=== PATIENT | female | born 1985 | race Hispanic/Latino ===

== ENCOUNTER 2017-12-08 12:13 | Emergency (ER) | payer SELFPAY ==
[2017-12-08] MEDS ORDERED: ACETAMINOPHEN EXTRA STRENGTH 500 MG TABLET ONE (12:51)
[2017-12-08 12:57] LABS: BASOPHILS % (AUTO) 0.1 % (0.0-5.0); HEMATOCRIT 39.3 % (36-48); LYMPHOCYTES % (AUTO) 5.9 % (21.0-51.0); MEAN CORPUSCULAR HGB CONC 33.4 g/dL (32.0-36.0); MEAN CORPUSCULAR VOLUME 77.9 fL (79-99); MONOCYTES % (AUTO) 5.3 % (3.0-13.0); NEUTROPHILS % (AUTO) 88.7 % (40.0-77.0); PLATELET COUNT (AUTO) 322 K/uL (130-400); RED BLOOD CELL COUNT(AUTO) 5.05 MIL/uL (4.00-5.50); RED CELL DISTRIBUTION WIDTH 14.9 % (11.0-15.5); WHITE BLOOD COUNT (AUTO) 14.2 K/uL (4.8-10.8)
[2017-12-08 13:01] LABS: APPEARANCE,URINE Clear (CLEAR); BILIRUBIN,URINE Negative (NEGATIVE); COLOR,URINE Yellow (YELLOW); GLUCOSE, URINE (UA) Negative (NEGATIVE); KETONES,URINE Negative (NEGATIVE); LEUKOCYTE ESTERASE ,URINE Moderate (NEGATIVE); NITRATE,URINE Positive (NEGATIVE); OCCULT BLOOD,URINE Small (NEGATIVE); PH,URINE 5.5 (5.0-8.0); PROTEIN,URINE POS 1+ (NEGATIVE)
[2017-12-08 13:02] LABS: CARBON DIOXIDE 27 mmol/L (21-32); CHLORIDE 98 mmol/L (101-111); CREATININE 0.9 mg/dL (0.5-1.5); GLOMERULAR FILTR. RATE CALC 78 mL/min (>60); GLUCOSE,RANDOM 111 mg/dL (70-105); POTASSIUM 3.4 mmol/L (3.5-5.1); SODIUM SERUM 134 mmol/L (136-145); UREA NITROGEN, BLOOD 12 mg/dL (7-18)
[2017-12-08 13:05] LABS: INR 0.95 (0.85-1.15); PARTIAL THROMBOPLASTIN TIME 28.9 SEC (26.3-35.5)
[2017-12-08 13:20] LABS: BACTERIA,URINE Rare /HPF (None Seen); RBC,URINE 0-1 /HPF (0-1); SQUAMOUS EPITHELIAL CELL,UR Few /HPF (0-2)
[2017-12-08 13:30] LABS: ALANINE AMINOTRANSFERASE 63 U/L (12-78); ALBUMIN 3.8 g/dL (3.5-5.0); ASPARTATE AMINOTRANSFERASE 17 U/L (10-37); BILIRUBIN,TOTAL 0.8 mg/dL (0.2-1.0); CREATINE KINASE MB 1.8 ng/mL (0.5-3.6); CREATINE KINASE, TOTAL 110 U/L (21-232); MYOGLOBIN 36 ng/mL (10-92); TOTAL PROTEIN, SERUM 8.2 g/dL (6.0-8.3); TROPONIN I < 0.04 ng/mL (0.00-0.06)
[2017-12-08] MEDS ORDERED: POTASSIUM BICARB/CIT AC 25 MEQ TABLET.EFF ONE (13:57)
[2017-12-08] MEDS ORDERED: CEFTRIAXONE SODIUM 1 GM ONE (13:58)
[2017-12-08] MEDS ORDERED: IBUPROFEN 600 MG TABLET ONE (14:01)
[2017-12-08] MEDS ORDERED: ONDANSETRON HCL MDV 20ML 2 MG/ML VIAL ONE (14:18)
[2017-12-08] MEDS ORDERED: MORPHINE SULFATE 4 MG/1ML SYG ONE (14:18)
== END 2017-12-08 14:58 | disposition home or self-care (01) ==
LOC: EDH 12:13
DX: N39.0 Urinary tract infection, site not specified (principal); J11.1 Influenza due to unidentified influenza virus with other respiratory manifestations; Z72.0 Tobacco use
CPT/HCPCS: 36415; 71045; 80053; 81001; 81025; 82550; 82553; 83605; 83690; 83874; 84484; 85025; 85610; 85730; 87040 ×2; 87088; 87186; 87804 ×2; 93005; 96374; 96375; 99285; J0696; J2270

== ENCOUNTER 2018-07-11 09:22 | Emergency (ER) | payer SELFPAY ==
[2018-07-11] MEDS ORDERED: ONDANSETRON HCL 4 MG/2 ML VIAL ONE (10:23)
[2018-07-11] MEDS ORDERED: LIDOCAINE HCL 2% JELLY 5 ML ONE (10:23)
[2018-07-11] MEDS ORDERED: SODIUM CHLORIDE 0.9% 1000ML 1,000 ML IV ONE (10:24)
[2018-07-11] MEDS ORDERED: TETANUS/DIPHTHERIA TOXOID [ADULT] 0.5 ML VIAL IM ONE (10:25)
[2018-07-11 10:26] LABS: BASOPHILS % (AUTO) 0.2 % (0.0-5.0); HEMATOCRIT 40.5 % (36-48); MEAN CORPUSCULAR HGB CONC 33.4 g/dL (32.0-36.0); MEAN CORPUSCULAR VOLUME 86.8 fL (79-99); MONOCYTES % (AUTO) 5.5 % (3.0-13.0); NEUTROPHILS % (AUTO) 81.3 % (40.0-77.0); PLATELET COUNT (AUTO) 312 K/uL (130-400); RED BLOOD CELL COUNT(AUTO) 4.67 MIL/uL (4.00-5.50); WHITE BLOOD COUNT (AUTO) 12.3 K/uL (4.8-10.8)
[2018-07-11] MEDS ORDERED: MORPHINE SULFATE 4 MG/1ML SYG ONE (10:27)
[2018-07-11 10:34] LABS: CREATININE 0.6 mg/dL (0.5-1.5); POTASSIUM 3.9 mmol/L (3.5-5.1)
[2018-07-11 10:37] LABS: INR 0.94 (0.85-1.15); PARTIAL THROMBOPLASTIN TIME 28.9 SEC (26.3-35.5); PROTHROMBIN TIME 9.9 SEC (9.6-11.6)
[2018-07-11 10:39] LABS: ALBUMIN 3.7 g/dL (3.5-5.0); BILIRUBIN,TOTAL 0.5 mg/dL (0.2-1.0); TOTAL PROTEIN, SERUM 7.6 g/dL (6.0-8.3)
[2018-07-11 11:10] LABS: APPEARANCE,URINE Clear (CLEAR); BILIRUBIN,URINE Negative (NEGATIVE); COLOR,URINE Yellow (YELLOW); GLUCOSE, URINE (UA) Negative (NEGATIVE); KETONES,URINE Negative (NEGATIVE); LEUKOCYTE ESTERASE ,URINE Negative (NEGATIVE); NITRATE,URINE Negative (NEGATIVE); OCCULT BLOOD,URINE Negative (NEGATIVE); PROTEIN,URINE Negative (NEGATIVE)
[2018-07-11 11:16] LABS: AMPHET/METH SCREEN,URINE NEGATIVE (NEGATIVE); BARBITURATE SCREEN, URINE NEGATIVE (NEGATIVE); BENZODIAZEPINES SCREEN,URINE NEGATIVE (NEGATIVE); CANNABINOID SCREEN,URINE NEGATIVE (NEGATIVE); COCAINE SCREEN,URINE POSITIVE (NEGATIVE); OPIATE SCREEN,URINE NEGATIVE (NEGATIVE); PHENCYCLIDINE SCREEN,URINE NEGATIVE (NEGATIVE)
[2018-07-11] MEDS ORDERED: IOHEXOL-350 75 ML VIAL IV ONE (11:21)
[2018-07-11] MEDS ORDERED: KETOROLAC TROMETHAMINE 30MG/ML ONE (12:38)
== END 2018-07-11 13:48 | disposition home or self-care (01) ==
LOC: EDH 09:22
DX: S93.492A Sprain of other ligament of left ankle, initial encounter (principal); S30.0XXA Contusion of lower back and pelvis, initial encounter; Z90.49 Acquired absence of other specified parts of digestive tract; V87.8XXA Person injured in other specified noncollision transport accidents involving motor vehicle (traffic), initial encounter; Y93.89 Activity, other specified; Y92.488 Other paved roadways as the place of occurrence of the external cause; Y99.8 Other external cause status
CPT/HCPCS: 36415; 73600; 74177; 80053; 80305; 81003; 82150; 82550; 83690; 84702; 85025; 85610; 85730; 90471; 90714; 94761; 96374; 96375; 99284; G0480; J1885; J2270; J2405; J7030; Q9967

== ENCOUNTER 2022-12-30 00:05 | Emergency (ER) | payer OTHER ==
[~2022-12-30] VITALS: Ht 157.5 cm; Wt 93.9 kg
[2022-12-30 00:07] VITALS: BP 114/69
[2022-12-30] MEDS ORDERED: CLIN-141 PO (01:45)
[2022-12-30] MEDS ORDERED: IBUP-1493 PO (01:45)
[2022-12-30] MEDS ORDERED: HYDROCODONE/ACETAMINOPHEN 5/325 MG TAB ONE (01:50)
[2022-12-30] MEDS ORDERED: KETOROLAC 60 MG VIAL (30MG/ML) IM ONE ×2 (01:50→02:00)
[2022-12-30] MEDS ORDERED: HYDROCODONE/ACETAMINOPHEN 5/325 MG TAB PO ONE (02:00)
== END 2022-12-30 02:12 | disposition home or self-care (01) ==
LOC: EDH 00:05
DX: K04.7 Periapical abscess without sinus (principal); F17.200 Nicotine dependence, unspecified, uncomplicated; Z90.89 Acquired absence of other organs; Z90.49 Acquired absence of other specified parts of digestive tract
CPT/HCPCS: 99283; 96372; J1885

== ENCOUNTER 2022-12-30 06:48 | Emergency (ER) | payer OTHER ==
[~2022-12-30] VITALS: Ht 157.5 cm; Wt 93.9 kg
[~2022-12-30 06:48] MED LIST: CLIN-141 PO; IBUP-1493 PO
[2022-12-30 07:00] VITALS: BP 124/70
[2022-12-30] MEDS ORDERED: ONDANSETRON ODT 4MG TAB ONE (07:54)
[2022-12-30] MEDS ORDERED: MORPHINE 4 MG SYG ONE (07:55)
[2022-12-30] MEDS ORDERED: HYDROCODONE/ACETAMINOPHEN 5/325 MG TAB PO ONE (08:00)
[2022-12-30] MEDS ORDERED: MORPHINE 4 MG SYG IM ONE (08:00)
[2022-12-30] MEDS ORDERED: ONDANSETRON ODT 4MG TAB SL ONE (08:00)
== END 2022-12-30 08:11 | disposition home or self-care (01) ==
LOC: EDH 06:48
DX: K02.9 Dental caries, unspecified (principal); F17.210 Nicotine dependence, cigarettes, uncomplicated; Z90.89 Acquired absence of other organs; Z90.49 Acquired absence of other specified parts of digestive tract
CPT/HCPCS: 99283; 96372; J2270

== ENCOUNTER 2023-05-23 17:22 | Emergency (ER) | payer OTHER ==
[~2023-05-23] VITALS: Ht 157.5 cm; Wt 89.4 kg
[2023-05-23 17:23] VITALS: BP 126/81; PULSE 100; RESP 20
[2023-05-23 19:31] LABS: BASOPHILS # (AUTO) 0.02 K/uL (0.00-0.20); BASOPHILS % (AUTO) 0.2 % (0.0-5.0); EOSINOPHILS # (AUTO) 0.13 K/uL (0.00-0.70); EOSINOPHILS % (AUTO) 1.6 % (0.0-8.0); IMMATURE GRANULOCYTE ABSOLUTE 0.02 K/uL (0-1); LYMPHOCYTES # (AUTO) 1.4 K/uL (1.0-4.8); LYMPHOCYTES % (AUTO) 16.9 % (21.0-51.0); MEAN CORPUSCULAR HEMOGLOBIN 26.8 pg (27.0-33.0); MEAN CORPUSCULAR HGB CONC 31.6 g/dL (32.0-36.0); MEAN CORPUSCULAR VOLUME 84.8 fL (79-99); MONOCYTES # (AUTO) 0.5 K/uL (0.1-1.0); MONOCYTES % (AUTO) 5.7 % (3.0-13.0); NEUTROPHILS # (AUTO) 6.2 K/uL (1.8-7.7); NEUTROPHILS % (AUTO) 75.4 % (40.0-77.0); PLATELET COUNT (AUTO) 319 K/uL (130-400); RED BLOOD CELL COUNT(AUTO) 5.07 MIL/uL (4.00-5.50); WHITE BLOOD COUNT (AUTO) 8.3 K/uL (4.8-10.8)
[2023-05-23 19:35] LABS: APPEARANCE,URINE CLOUDY (CLEAR); BILIRUBIN,URINE NEGATIVE (NEGATIVE); COLOR,URINE YELLOW (YELLOW); GLUCOSE, URINE (UA) NEGATIVE (NEGATIVE); KETONES,URINE NEGATIVE (NEGATIVE); LEUKOCYTE ESTERASE ,URINE 75 Leu/uL (NEGATIVE); NITRATE,URINE NEGATIVE (NEGATIVE); OCCULT BLOOD,URINE NEGATIVE (NEGATIVE); PROTEIN,URINE 30 mg/dL (NEGATIVE); UROBILINOGEN,URINE 0.2 mg/dL (0.2-1.0)
[2023-05-23 19:46] LABS: CREATININE 0.8 mg/dL (0.5-1.5); POTASSIUM 3.6 mmol/L (3.5-5.1)
[2023-05-23 19:50] LABS: ALBUMIN 3.3 g/dL (3.5-5.0); BILIRUBIN,TOTAL 0.7 mg/dL (0.2-1.0); TOTAL PROTEIN, SERUM 6.8 g/dL (6.0-8.3)
[2023-05-23 19:50] LABS: HCG,QUALITATIVE URINE NEGATIVE (NEGATIVE)
[2023-05-23 19:51] LABS: ADD UA MICROSCOPIC YES
[2023-05-23 19:59] LABS: MUCUS,URINE FEW LPF (None Seen); SQUAMOUS EPITHELIAL CELL,UR MOD /HPF (0-2)
[2023-05-23] MEDS ORDERED: CEPH500B PO (20:08)
[2023-05-23] MEDS ORDERED: LOPE2CAP PO (20:08)
[2023-05-23] MEDS ORDERED: ONDA4TAB10 PO (20:08)
[2023-05-23] MEDS ORDERED: DICY20TA2 PO (20:08)
[2023-05-23] MEDS ORDERED: ONDANSETRON ODT 4MG TAB SL ONE (20:30)
[2023-05-23] MEDS ORDERED: DICYCLOMINE HCL 20 MG TAB PO ONE (20:30)
== END 2023-05-23 20:43 | disposition home or self-care (01) ==
LOC: EDH 17:22
DX: N39.0 Urinary tract infection, site not specified (principal); A08.4 Viral intestinal infection, unspecified; F17.200 Nicotine dependence, unspecified, uncomplicated; Z79.899 Other long term (current) drug therapy; Z90.49 Acquired absence of other specified parts of digestive tract; Z90.89 Acquired absence of other organs; Z98.890 Other specified postprocedural states
CPT/HCPCS: 36415; 80053; 81001; 81025; 83690; 85025; 87088

== ENCOUNTER 2023-08-22 22:58 | Emergency (ER) | payer OTHER ==
[~2023-08-22] VITALS: Ht 157.5 cm; Wt 86.2 kg
[~2023-08-22 22:58] MED LIST changes: +CEPH500B PO; +DICY20TA2 PO; +LOPE2CAP PO; +ONDA4TAB10 PO
[2023-08-22 23:49] LABS: SARS-CoV-2, RNA, NAAT NEGATIVE SARS CoV-2 (NEGATIVE)
[2023-08-22 23:54] LABS: INFLUENZA TYPE A Negative For Type A (NEGATIVE); INFLUENZA TYPE B Negative For Type B (NEGATIVE)
[2023-08-23 01:10] LABS: APPEARANCE,URINE CLOUDY (CLEAR); BILIRUBIN,URINE NEGATIVE (NEGATIVE); COLOR,URINE YELLOW (YELLOW); GLUCOSE, URINE (UA) NEGATIVE (NEGATIVE); KETONES,URINE NEGATIVE (NEGATIVE); LEUKOCYTE ESTERASE ,URINE 250 Leu/uL (NEGATIVE); NITRATE,URINE NEGATIVE (NEGATIVE); OCCULT BLOOD,URINE NEGATIVE (NEGATIVE); PROTEIN,URINE 50 mg/dL (NEGATIVE); UROBILINOGEN,URINE 3 mg/dL (0.2-1.0)
[2023-08-23 01:19] LABS: ADD UA MICROSCOPIC YES
[2023-08-23 01:21] LABS: BACTERIA,URINE MOD /HPF (None Seen); MUCUS,URINE FEW LPF (None Seen); SQUAMOUS EPITHELIAL CELL,UR FEW /HPF (0-2); WBC,URINE 51-100 /HPF (0-1)
[2023-08-23 01:22] LABS: HCG,QUALITATIVE URINE NEGATIVE (NEGATIVE)
[2023-08-23] MEDS ORDERED: CEPHALEXIN 500 MG CAPSULE PO ONE (02:30)
[2023-08-23] MEDS ORDERED: METRONIDAZOLE 500 MG TABLET PO SCH (02:30)
[2023-08-23] MEDS ORDERED: METR-172 PO (02:38)
[2023-08-23] MEDS ORDERED: CEPH500B PO (02:38)
[2023-08-23 02:49] VITALS: BP 122/62; PULSE 90; RESP 16; O2SAT 100
== END 2023-08-23 02:50 | disposition home or self-care (01) ==
LOC: EDH 22:58
DX: N39.0 Urinary tract infection, site not specified (principal); M79.10 Myalgia, unspecified site; F17.200 Nicotine dependence, unspecified, uncomplicated; Z20.822 Contact with and (suspected) exposure to COVID-19; Z79.899 Other long term (current) drug therapy; Z90.49 Acquired absence of other specified parts of digestive tract; Z90.89 Acquired absence of other organs; Z98.890 Other specified postprocedural states
CPT/HCPCS: 81001; 81025; 87077; 87088; 87186; 87486; 87635; 87797; 87804